=== PATIENT | female | born 1975 | race Hispanic/Latino ===

== ENCOUNTER 2021-07-01 07:48 | Outpatient (CLI) | payer BC, OTHER | END 2021-07-01 07:49 | disposition home or self-care (01) | LOC: CSHMRI 07:48 | PROVIDERS: ATTEND Physician Assistant | DX: M25.461 Effusion, right knee (principal); S83.241A Other tear of medial meniscus, current injury, right knee, initial encounter; M23.8X1 Other internal derangements of right knee; M22.41 Chondromalacia patellae, right knee; M94.8X6 Other specified disorders of cartilage, lower leg ==